=== PATIENT | male | born 2005 | race Caucasian/White ===

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

== ENCOUNTER 2025-05-29 17:39 | Emergency (ER) | payer MEDICARE, OTHER ==
[~2025-05-29] VITALS: Ht 167.6 cm; Wt 88.6 kg
[2025-05-29 18:17] LABS: BASO # 0.1 10^3/uL (0.0-0.2); BASO % 0.8 % (0.0-1.0); EOS # 0.2 10^3/uL (0.0-0.5); EOS % 1.7 % (0.0-3.0); LYMPH # 4.2 10^3/uL (1.5-5.0); LYMPH % 35.6 % (24.0-44.0); MONO # 0.7 10^3/uL (0.0-0.8); MONO % 5.6 % (2.0-8.0); NEUTROPHILS # 6.5 10^3/uL (1.5-8.5); NEUTROPHILS % 55.8 % (36.0-66.0); PLATELET COUNT, AUTOMATED 321 10^3/uL (150-450)
[2025-05-29 18:35] LABS: CALCIUM LEVEL 9.1 MG/DL (8.5-10.1); CARBON DIOXIDE LEVEL 25 MMOL/L (20-31); CHLORIDE LEVEL 104 MMOL/L (98-107); CK-MB VALUE MASS 2.6 NG/ML (<3.6); CREATININE FOR GFR 1.04 MG/DL (0.70-1.30); GLOMERULAR FILTRATION RATE > 90.0 (>60); MAGNESIUM LEVEL 2.1 MG/DL (1.8-2.4); POTASSIUM SERUM 3.7 MMOL/L (3.5-5.1); SODIUM LEVEL 140 MMOL/L (136-145)
[2025-05-29 18:37] LABS: CPK CREATINE PHOSPHOKINASE 437 U/L (46-171); MB/CK RELATIVE INDEX 0.59 (< OR =4)
[2025-05-29] MEDS: KETOROLAC 60 MG/2 ML VIAL IM ONE (18:51)
[2025-05-29 19:14] LABS: FREE T4 1.14 NG/DL (0.83-1.43)
[2025-05-29 20:14] LABS: CK-MB VALUE MASS 2.0 NG/ML (<3.6)
[2025-05-29 20:19] LABS: CPK CREATINE PHOSPHOKINASE 397 U/L (46-171); MB/CK RELATIVE INDEX 0.50 (< OR =4)
[2025-05-29 20:45] VITALS: BP 116/53; TEMP 98; O2SAT 97
== END 2025-05-29 20:59 | disposition home or self-care (01) ==
LOC: M ED 17:39
DX: R07.9 Chest pain, unspecified (principal); F17.200 Nicotine dependence, unspecified, uncomplicated; Z88.1 Allergy status to other antibiotic agents; Z88.8 Allergy status to other drugs, medicaments and biological substances
CPT/HCPCS: 36415; 80048; 82550; 82553; 83735; 84439; 84443; 84484; 85025; 85379; 93005; 96372; 99284; J1885